=== PATIENT | female | born 1985 | race Caucasian/White ===

== ENCOUNTER 2017-02-05 17:09 | Emergency (ER) | payer MEDICAID ==
[~2017-02-05] VITALS: Ht 172.7 cm; Wt 69.0 kg
[~2017-02-05 17:09] MED LIST: ESOM20CA PO; HYDR50CA PO; LEVO75TA5 PO; OMEP-110 PO
[2017-02-05] MEDS ORDERED: LORazepam 1MG TABLET PO ONE (17:30)
[2017-02-05] MEDS ORDERED: PRAZ1CAP2 PO (17:32)
[2017-02-05] MEDS ORDERED: LORazepam 1MG TABLET ONE (17:43)
[2017-02-05 19:39] VITALS: BP 102/70
== END 2017-02-05 19:40 | disposition home or self-care (01) ==
LOC: ED 18:08
DX: F41.1 Generalized anxiety disorder (principal); R06.4 Hyperventilation; F43.11 Post-traumatic stress disorder, acute; E05.90 Thyrotoxicosis, unspecified without thyrotoxic crisis or storm; J45.909 Unspecified asthma, uncomplicated; Z88.0 Allergy status to penicillin; Z88.1 Allergy status to other antibiotic agents; Z88.8 Allergy status to other drugs, medicaments and biological substances; F17.200 Nicotine dependence, unspecified, uncomplicated
CPT/HCPCS: 93005; 99284

== ENCOUNTER 2017-04-02 13:58 | Emergency (ER) | payer MEDICAID ==
[~2017-04-02] VITALS: Ht 175.3 cm; Wt 76.5 kg
[~2017-04-02 13:58] MED LIST changes: +PRAZ1CAP2 PO
[2017-04-02 14:16] VITALS: BP 117/83
[2017-04-02 16:15] LABS: HIV 1&2 ANTIBODY SCREEN Nonreactive (Nonreactive); HIV-1 p24 ANTIGEN Nonreactive (Nonreactive)
[2017-04-03 08:30] LABS: HEPATITIS C VIRUS ANTIBODY Nonreactive (Nonreactive)
== END 2017-04-02 15:57 | disposition home or self-care (01) ==
LOC: ED 15:56
DX: Z77.21 Contact with and (suspected) exposure to potentially hazardous body fluids (principal); G43.909 Migraine, unspecified, not intractable, without status migrainosus; J45.909 Unspecified asthma, uncomplicated; E05.90 Thyrotoxicosis, unspecified without thyrotoxic crisis or storm; F43.10 Post-traumatic stress disorder, unspecified; F12.10 Cannabis abuse, uncomplicated
CPT/HCPCS: 36415; 86703; 86705; 86706; 86803; 87340; 87899; 99284; G0435

== ENCOUNTER 2017-04-12 06:40 | Emergency (ER) | payer MEDICAID ==
[~2017-04-12] VITALS: Ht 175.3 cm; Wt 78.2 kg
[2017-04-12] MEDS ORDERED: ALBUTEROL/IPRATROPIUM 2.5MG/0.5MG, 3 ML NPPB ONE (07:30)
[2017-04-12] MEDS ORDERED: ALBUTEROL/IPRATROPIUM 2.5MG/0.5MG, 3 ML ONE (07:32)
[2017-04-12 08:33] VITALS: BP 123/78
== END 2017-04-12 08:35 | disposition home or self-care (01) ==
LOC: ED 08:15
DX: J20.9 Acute bronchitis, unspecified (principal); J45.31 Mild persistent asthma with (acute) exacerbation; E05.90 Thyrotoxicosis, unspecified without thyrotoxic crisis or storm; G43.909 Migraine, unspecified, not intractable, without status migrainosus
CPT/HCPCS: 71020; 93005; 94640; 99284; J7620

== ENCOUNTER 2017-10-02 10:56 | Emergency (ER) | payer MEDICAID ==
[~2017-10-02] VITALS: Ht 175.3 cm; Wt 76.0 kg
[2017-10-02] MEDS ORDERED: SODIUM CHLORIDE 0.9% 1,000 ML IV ONE (11:29)
[2017-10-02] MEDS ORDERED: SODIUM CHLORIDE 0.9% 1,000ML IVBOLUS ONE (11:30)
[2017-10-02] MEDS ORDERED: FAMOTIDINE 20 MG/2 ML IVP ONE (11:30)
[2017-10-02] MEDS ORDERED: SODIUM CHLORIDE FLUSH 10ML SYR IVF ONE (11:30)
[2017-10-02] MEDS ORDERED: ONDANSETRON 2MG/ML, 2ML IVPush ONE (11:30)
[2017-10-02 11:48] LABS: HEMOGLOBIN 15.2 g/dL (11.7-16.4); WHITE BLOOD COUNT 5.2 x10^3/uL (3.4-10)
[2017-10-02 11:58] LABS: ASPARTATE AMINO TRANSFERASE 19 U/L (15-37); BLOOD UREA NITROGEN 10 mg/dL (7-18)
[2017-10-02] MEDS ORDERED: ONDANSETRON 2MG/ML, 2ML ONE (12:11)
[2017-10-02] MEDS ORDERED: FAMOTIDINE 20 MG/2 ML ONE (12:11)
[2017-10-02] MEDS ORDERED: OMNIPAQUE 350 MG/ML, 100ML BOTTLE ONE (14:11)
[2017-10-02 14:18] VITALS: BP 101/53
== END 2017-10-02 14:52 | disposition home or self-care (01) ==
LOC: ED 13:03
DX: R10.84 Generalized abdominal pain (principal); F43.10 Post-traumatic stress disorder, unspecified; G43.909 Migraine, unspecified, not intractable, without status migrainosus; J45.909 Unspecified asthma, uncomplicated; M79.7 Fibromyalgia
CPT/HCPCS: 36415; 74177; 76700; 80053; 81001; 83605; 83690; 84703; 85025; 87086; 96361; 96374; 96375; 99285; J2405; J7030; Q9967; S0028

== ENCOUNTER 2017-11-01 22:31 | Emergency (ER) | payer MEDICAID ==
[~2017-11-01] VITALS: Ht 175.3 cm; Wt 58.0 kg
[2017-11-01] MEDS ORDERED: KETOROLAC 30 MG/1 ML ONE (23:21)
[2017-11-01] MEDS ORDERED: HYDROmorphone 2 MG/ML, 1ML ONE (23:21)
[2017-11-01] MEDS ORDERED: HYDROmorphone 2 MG/ML, 1ML IVPush PRN (23:30)
[2017-11-01] MEDS ORDERED: KETOROLAC 30 MG/1 ML IV ONE (23:30)
[2017-11-02] MEDS ORDERED: DIAZEPAM 5 MG TABLET PO ONE (00:30)
[2017-11-02] MEDS ORDERED: DIAZEPAM 5 MG TABLET ONE (00:38)
[2017-11-02 01:44] VITALS: BP 99/66
== END 2017-11-02 00:26 | disposition home or self-care (01) ==
LOC: ED 11-02 00:20
DX: S39.012A Strain of muscle, fascia and tendon of lower back, initial encounter (principal); M62.830 Muscle spasm of back; W19.XXXA Unspecified fall, initial encounter; Y93.89 Activity, other specified; Y92.009 Unspecified place in unspecified non-institutional (private) residence as the place of occurrence of the external cause; Y99.8 Other external cause status
CPT/HCPCS: 72110; 72190; 96374; 96375; 99284; J1170; J1885

== ENCOUNTER 2019-04-01 20:04 | Emergency (ER) | payer MEDICAID ==
[~2019-04-01] VITALS: Ht 175.3 cm; Wt 82.0 kg
--- NOTE | 2019-04-01 20:08 | NUR ---
PT PLACED IN VIEW OF NURSES STATION, BELONGINGS IN 1 BAG AT CHARGE DESK.
[2019-04-01] MEDS ORDERED: HYOS0.1268 PO (20:32)
[2019-04-01] MEDS ORDERED: TOPI100T8 PO (20:32)
[2019-04-01] MEDS ORDERED: CLIN150C14 PO (20:32)
[2019-04-01] MEDS ORDERED: HYDR-3241 PO (20:32)
[2019-04-01 20:57] LABS: BASOPHILS # (AUTO) 0.08 x10^3/uL (0-0.1); BASOPHILS % (AUTO) 1 % (0-1); EOSINOPHILS # (AUTO) 0.27 x10^3/uL (0-0.4); EOSINOPHILS % (AUTO) 4 % (1-7); LYMPHOCYTES # (AUTO) 2.77 x10^3/uL (1-3.4); LYMPHOCYTES % (AUTO) 44 % (22-44); MD NO; MEAN CORPUSCULAR HEMOGLOBIN 29.8 pg (27.0-34.8); MEAN CORPUSCULAR HGB CONC 33.2 g/dL (32.4-35.8); MEAN CORPUSCULAR VOLUME 89.8 fL (80-100); MEAN PLATELET VOLUME 8.7 fL (7.4-10.4); MONOCYTES # (AUTO) 0.51 x10^3/uL (0.2-0.8); MONOCYTES % (AUTO) 8 % (2-9); NEUTROPHILS # (AUTO) 2.66 x10^3/uL (1.8-6.8); NEUTROPHILS % (AUTO) 42 % (42-75); PLATELET COUNT 261 x10^3/uL (130-400); RED CELL DISTRIBUTION WIDTH 13.2 % (9.6-15.2)
[2019-04-01] MEDS ORDERED: CLINDAMYCIN 150 MG CAPSULE PO ONE (21:00)
--- NOTE | 2019-04-01 21:02 | NUR ---
pt resting on gurathens, room secured, sitter at doorway for continous monitoring
[2019-04-01] MEDS ORDERED: hydrOXyzine 50MG TABLET ONE (21:04)
[2019-04-01 21:10] LABS: ALANINE AMINOTRANSFERASE 31 U/L (12-78); ANION GAP 8 mmol/L (5-15); CALCIUM 9.3 mg/dL (8.5-10.1); CHLORIDE 112 mmol/L (98-107); CREATININE 0.81 mg/dL (0.55-1.02); SALICYLATE LEVEL 2.6 mg/dL (2.8-20.0)
--- NOTE | 2019-04-01 21:10 | NUR ---
pt medicated per mar
[2019-04-01 21:16] LABS: ALKALINE PHOSPHATASE 126 U/L (45-117); BILIRUBIN,TOTAL 0.3 mg/dL (0.2-1.0); TOTAL PROTEIN 7.3 g/dL (6.4-8.2)
[2019-04-01 21:21] LABS: ACETAMINOPHEN < 2 mcg/mL (10-30)
--- NOTE | 2019-04-01 21:27 | NUR ---
provided pt with snack, drink, si precautions maintained. resting calmly, nad, sitter at doorway for continous monitoring
[2019-04-01 21:28] LABS: AMPHETAMINE SCREEN, URINE Negative (Negative); BARBITURATE SCREEN, URINE Negative (Negative); BENZODIAZEPINE SCREEN, URINE Negative (Negative); CANNABINOID SCREEN, URINE Positive (Negative); COCAINE SCREEN, URINE Negative (Negative); METHADONE SCREEN, URINE Negative (Negative); OPIATE SCREEN, URINE Positive (Negative)
--- NOTE | 2019-04-01 22:13 | NUR ---
PT RESTING CALMLY, DENIES NEEDS, SITTERR AT DOORWAY FOR CONTINOUS MONITORING
--- NOTE | 2019-04-01 22:21 | NUR ---
THROUGHPUT RN: PACKET FAXED TO [facility]
--- NOTE | 2019-04-01 23:06 | NUR ---
pt resting with eyes closed, nadn, equal chest rise/fall observed, sitter at doorway for continous monitoring
--- NOTE | 2019-04-02 00:56 | NUR ---
pt resting with eyes closed, repositioned self on gurney, equal chest rise/fall observed, sitter at doorway for continous monitoring
--- NOTE | 2019-04-02 01:22 | NUR ---
provided pt with hospital bed, pt now resting calmly, denies needs, nad, room secured, sitter at doorway for continous monitoring
--- NOTE | 2019-04-02 02:00 | NUR ---
pt sitting up in bed, denies needs, vss, sitter at doorway for continous monitoring
[2019-04-02] MEDS ORDERED: LORazepam 1MG TABLET PO PRN (02:30)
--- NOTE | 2019-04-02 02:39 | NUR ---
pt up to rr with steady gait. urine sample taken to lab.
--- NOTE | 2019-04-02 03:11 | NUR ---
pt resting calmly, nadn,, equal chest rise/fall observed, sitter at doorway for continous monitoring
--- NOTE | 2019-04-02 03:50 | NUR ---
pt c/o feeling anxious, pt medicated per mar
[2019-04-02] MEDS ORDERED: LORazepam 0.5MG TABLET ONE ×3 (03:51→20:13)
--- NOTE | 2019-04-02 04:20 | NUR ---
pt resting calmly, denies needs, nadn, sitter at doorway for continous monitoring
--- NOTE | 2019-04-02 05:00 | NUR ---
TELEPSYCH WAS PAGED AND BOT [id number] WAS PLACED IN ROOM.
--- NOTE | 2019-04-02 05:05 | NUR ---
pt resting with eyes closed, equal chest rise/fall observed, awaiting telepsych consult, sitter at doorway for continous monitoring
--- NOTE | 2019-04-02 06:11 | NUR ---
pt resting in bed, denies needs, respirations even and unlabored, sitter at doorway for continous monitoring
--- NOTE | 2019-04-02 06:57 | NUR ---
report given to lainey schultz
--- NOTE | 2019-04-02 07:00 | NUR ---
BEDSIDE REPORT FROM JORGE RN. PATIENT SLEEPING COMFORTABLY ON HOSPITAL BED DENIES COMPLAINTS AT THIS TIME BREAKFAST ORDERED UPDATED ON POC (HOPEFULLY ADMIT TO 2N) PATIENT A LEGAL HOLD ROOM SECURED W/ PSYCHIATRIC PRECAUTIONS SITTER AT DOORWAY FOR CONTINUOS MONITORING
--- NOTE | 2019-04-02 07:42 | NUR ---
REPORT PROVIDED TO TELEPSYCH MD IN PREPARATION FOR EVALUATION
--- NOTE | 2019-04-02 07:56 | NUR ---
AFTER LAB CALLED TO CLARIFY- [facility]CG URINE COLLECTED URINE SAMPLE IN LAB W/ SUFFICIENT AMOUNT
--- NOTE | 2019-04-02 08:16 | NUR ---
PATIENT BEING EVALUATED BY TELEPSYCH MD MEDICATED PER EMAR. RATES PAIN AT 6/10 RELATED TO CHRONIC LEFT KNEE INFECTION
[2019-04-02 08:17] LABS: HCG UR SG 1.017 (1.003-1.030)
[2019-04-02] MEDS: CLINDAMYCIN 150 MG CAPSULE PO SCH ×4 (08:21→20:48)
[2019-04-02] MEDS: TOPIRAMATE 100 MG TABLET PO SCH ×2 (08:21→20:48)
[2019-04-02] MEDS: LEVOTHYROXINE 75 MCG TABLET PO SCH (08:21)
[2019-04-02] MEDS ORDERED: BACITRACIN ZINC OINT 500U/GM, 0.9 GM ONE (08:24)
[2019-04-02] MEDS ORDERED: hydrOXyzine 50MG TABLET ONE (08:38)
[2019-04-02] MEDS: HYDROXYZINE PAMOATE 25MG CAP PO SCH ×2 (08:42→20:27)
[2019-04-02] MEDS: HYOSCYAMINE 0.125 MG TABLET PO SCH ×3 (08:43→20:28)
--- NOTE | 2019-04-02 08:50 | NUR ---
AFTER PSYCHIATRIST EVAL PATIENT BRIEFLY TEARFUL-REPORT "I JUST NEED TO BE ABLE TO GET BACK TO [place], [place]. I'M JUST OVERWHELMED LATELY AND I NEED HELP FINDING A NEW PLACE TO LIVE." NET SOFTWARE ARCHITECT ALLOWED PATIENT TO VENT AND REINFORCED WE ARE HERE FOR HER AND WILL DO OUR BEST TO EXPEDITE HER DISPOSITION ORDERED BY PROVIDERS ATE ENTIRE BREAKFAST UPDATED ON POC (HOPEFULLY ADMIT TO 2N) PATIENT A LEGAL HOLD ROOM SECURED W/ PSYCHIATRIC PRECAUTIONS SITTER AT DOORWAY FOR CONTINUOS MONITORING
[2019-04-02] MEDS ORDERED: HYDROXYZINE PAMOATE 50MG CAP PO SCH (09:00)
--- NOTE | 2019-04-02 09:21 | NUR ---
WITH RE-ASSESSMENT PATIENT NOW CALM. REPORT " I FEEL A LITTLE BETTER NOW. I TRUST YOU GUYS WONT KICK ME OUT TO THE STREETS WITHOUT HELPING ME FIRST." PAIN IMPROVED TO 2/10 AFTER MEDICATION ADMINISTRATION UPDATED ON POC ROOM REMAINS SECURED WITH PSYCHIATRIC PRECAUTIONS SITTER WITHIN EYELINE FOR CONTINUED OBSERVATION
[2019-04-02] MEDS ORDERED: LORazepam 1MG TABLET ONE (10:12)
[2019-04-02] MEDS: LORazepam 1MG TABLET PO PRN ×2 (10:34→20:28)
--- NOTE | 2019-04-02 10:37 | NUR ---
MEICATED PER EMAR FOR ANXIETY RATED AT 610 RELATED DISPO [employer] MACHINE TECHNICIAN AGAIN CLARIFIED WE ARE WORKING HARD TO TRANSFER HER TO A SAFE PLACE
--- NOTE | 2019-04-02 10:43 | NUR ---
ROOM REMAINS SECURED WITH PSYCHIATRIC PRECAUTIONS SITTER WITHIN EYELINE FOR CONTINUED OBSERVATION
[2019-04-02] MEDS ORDERED: POTASSIUM CHLORIDE 20 MEQ TAB.ER.PRT PO ONE (11:30)
[2019-04-02] MEDS ORDERED: POTASSIUM CHLORIDE 20 MEQ TAB.ER.PRT ONE (11:36)
--- NOTE | 2019-04-02 12:49 | NUR ---
PATIENT UP WALKING RAE WITH SITTER NO COMPLAINTS EATING LUNCH ROOM REMAINS SECURED WITH PSYCH PRECAUTIONS SITTER WITHING EYESIGHT REPORT TO DERRELL PETERSON
--- NOTE | 2019-04-02 13:27 | NUR ---
BREAK RN - PT RESTING ON L[place]EN. NADN. RESP EVEN AND UNLABORED. SITTER IN PLACE WITH EYES ON PT. ROOM SECURED.
--- NOTE | 2019-04-02 14:56 | NUR ---
WITH ADMINISTRATION OF CLINDAMYCIN PATIENT REPORTS SHE IS SUPPOSED TO BE ON IT QID. REVIEWED EXTERNAL MED HISTORY 150MG QID X 14 DAYS. PHARMACY AND PROVIDER MADE AWARE-ORDER CHANGED TO QID PATIENT UPDATED NO CONCERNS AT THIS TIME ROOM REMAINS SECURED WITH PSYCH PRECAUTIONS SITTER WITHING EYESIGHT
--- NOTE | 2019-04-02 15:40 | NUR ---
NO CONCERNS AT THIS TIME, RESTING COMFORTABLY ON HOSPITAL BED ROOM REMAINS SECURED WITH PSYCH PRECAUTIONS SITTER WITHING EYESIGHT
--- NOTE | 2019-04-02 17:13 | NUR ---
PATIENT ALLOWED TO SPEAK WITH EX- ON THE DESK PHONE WHILE CRUSHER SUPERVISED. CONVERSATION SEEMED TO GO WELL. PATIENT PROVIDED WITH ALTERNATIVE DINNER (MAC & CHEESE) IN ADDITION TO MAIN TRAY PER REQUEST MEDICATED WITH AFTERNOON DOSE OF CLINDAMYCIN-WILL STILL NEED 9PM DOSE TO MAKE IT QID. WILL PASS ON TO NEXT SHIFT DENIES COMPLAINTS-PROVIDED WITH WASH CLOTHS/BED SHEETS CHANGED FOR COMFORT ROOM REMAINS SECURED WITH PSYCHIATRIC PRECAUTIONS 1:1 SITTER WITHING EYELINE
--- NOTE | 2019-04-02 18:36 | NUR ---
ADDITIONAL DINNER ORDERED PER REQUEST DENIES COMPLAINTS ROOM REMAINS SECURED W/ PSYCHIATRIC PRECAUTIONS 1:1 SITTER W/IN LINE OF SIGHT
--- NOTE | 2019-04-02 19:07 | NUR ---
REPORT TO CORDELL PETERSON
--- NOTE | 2019-04-02 20:30 | NUR ---
PT RESTING ON BED. VSS. MEDICATED PER EMAR. SITTER AT BEDSIDE.
--- NOTE | 2019-04-02 21:33 | NUR ---
PT SLEEPING IN BED. SITTER AT BEDSIDE.
--- NOTE | 2019-04-02 22:50 | NUR ---
PT LAYING IN BED. SITTER AT BEDSIDE.
--- NOTE | 2019-04-02 23:56 | NUR ---
PT SLEEPING WITH SITTER AT BEDSIDE.
--- NOTE | 2019-04-03 00:43 | NUR ---
PT REMAINS SLEEPING WITH SITTER AT DOORWAY.
--- NOTE | 2019-04-03 02:28 | NUR ---
PT REMAINS SLEEPING WITH SITTER AT BEDSIDE.
--- NOTE | 2019-04-03 03:30 | NUR ---
PT REMAINS SLEEPING. SITTER AT BEDSIDE.
--- NOTE | 2019-04-03 04:25 | NUR ---
PT REMAINS SLEEPING. ABLE TO REPOSITION SELF. VSS. SITTER AT BEDSIDE.
--- NOTE | 2019-04-03 05:53 | NUR ---
PT AMBULATED TO BATHROOM. VSS. SITTER AT BEDSIDE.
[2019-04-03 05:54] LABS: BASOPHILS # (AUTO) 0.09 x10^3/uL (0-0.1); BASOPHILS % (AUTO) 2 % (0-1); EOSINOPHILS # (AUTO) 0.33 x10^3/uL (0-0.4); EOSINOPHILS % (AUTO) 6 % (1-7); LYMPHOCYTES # (AUTO) 2.74 x10^3/uL (1-3.4); LYMPHOCYTES % (AUTO) 52 % (22-44); MD NO; MEAN CORPUSCULAR VOLUME 90.6 fL (80-100); MEAN PLATELET VOLUME 8.6 fL (7.4-10.4); MONOCYTES # (AUTO) 0.58 x10^3/uL (0.2-0.8); MONOCYTES % (AUTO) 11 % (2-9); NEUTROPHILS # (AUTO) 1.54 x10^3/uL (1.8-6.8); NEUTROPHILS % (AUTO) 29 % (42-75); PLATELET COUNT 251 x10^3/uL (130-400); RED BLOOD COUNT 4.97 x10^6/uL (3.82-5.3); RED CELL DISTRIBUTION WIDTH 13.4 % (9.6-15.2)
[2019-04-03] MEDS: CLINDAMYCIN 150 MG CAPSULE PO SCH ×4 (06:01→21:37)
[2019-04-03] MEDS: LEVOTHYROXINE 75 MCG TABLET PO SCH (06:01)
[2019-04-03 06:06] LABS: ANION GAP 8 mmol/L (5-15); CALCIUM 9.8 mg/dL (8.5-10.1); CHLORIDE 110 mmol/L (98-107)
[2019-04-03 06:07] LABS: CREATININE 0.99 mg/dL (0.55-1.02)
--- NOTE | 2019-04-03 06:57 | NUR ---
REPORT GIVEN TO MARK PETERSON.
--- NOTE | 2019-04-03 06:58 | NUR ---
report received from Rosie. pt calmly resting on hospital bed, NAD with equal chest rise/fall, no needs at this time, pt remains in safe environment, sitter in view.
--- NOTE | 2019-04-03 08:00 | NUR ---
pt continues to calmly rest on hospital bed, watching TV, responds approp to staff, NAD, comfort measures provided, pt remains in safe environment, sitter in view. Addendum: 04/03/19 at 0803 by VICKI pt continues to calmly rest on hospital bed, NAD with equal chest rise/fall, no needs at this time, pt remains in safe environment, sitter in view.
--- NOTE | 2019-04-03 08:46 | NUR ---
breakfast tray given
--- NOTE | 2019-04-03 09:00 | NUR ---
pt calmly resting on hospital bed, watching TV, ate 100% of breakfast & given addt'l cereal per request, responds approp to staff, NAD, comfort measures provided, pt remains in safe environment, sitter in view.
[2019-04-03] MEDS ORDERED: hydrOXyzine 50MG TABLET ONE (09:02)
[2019-04-03] MEDS: HYDROXYZINE PAMOATE 25MG CAP PO SCH ×2 (09:36→21:37)
[2019-04-03] MEDS: HYOSCYAMINE 0.125 MG TABLET PO SCH ×3 (09:37→21:37)
[2019-04-03] MEDS: TOPIRAMATE 100 MG TABLET PO SCH ×2 (09:37→21:37)
--- NOTE | 2019-04-03 10:03 | NUR ---
pt continues to calmly rest on hospital bed, NAD with equal chest rise/fall, no needs at this time, pt remains in safe environment, sitter in view.
--- NOTE | 2019-04-03 10:51 | NUR ---
report given to Naida Storm
--- NOTE | 2019-04-03 10:52 | NUR ---
RECEIVED REPORT FROM KRISS PETERSON, ASSUMING CARE OF PT AT THIS TIME. PT RESTING IN ROOM WATCHING TV. CALM AND COOPERATIVE AT THIS TIME. MEDICATED PER JAN. FLUIDS AT BEDSIDE. SITTER IN RAE FOR CONTINUOUS MONITORING.
--- NOTE | 2019-04-03 11:39 | NUR ---
TASK RN: VIATALS COMPLETED, PT RESTING IN BED NADN AND EQUAL RESPIRATIONS WITH GOOD CAP REFILL NOTED.
[2019-04-03] MEDS ORDERED: NALOXONE 1 MG/ML, 2ML ONE (11:42)
[2019-04-03] MEDS ORDERED: DIPH,PERTUSS(ACELL),TET VAC/PF 0.5 ML IM-VACC ONE (11:49)
--- NOTE | 2019-04-03 12:56 | NUR ---
ISSUE WITH DIET TRAY BEING DELIVERED WITHOUT SOFT FOOD, DIETARY CONTACTED, NEW TRAY TO BE DELIEVERED. PT UPDATED, COOPERATIVE AND UNDERSTANDING. SITTER IN RAE FOR CONTINUOUS MONITORING
--- NOTE | 2019-04-03 13:09 | NUR ---
PT BECOMING INCREASINGLY UPSET AND TEARFUL OVER FOOD DELIVERED (MASHED POTATOES AND MAC CHEESE) PT UNWILLING TO GIVE THIS RN OTHER FOOD SUGGESTIONS AT THIS TIME. SECOND CALL PLACED TO DIETARY REQUESTING STEAMED VEGGIES, FRUIT AND PROTIEN DRINK
--- NOTE | 2019-04-03 14:52 | NUR ---
PT RESTING IN ROOM, CALM AND COOPERATIVE AT THIS TIME. FLUIDS AT BEDSIDE. NADN. ALL NEEDS MET AT THIS TIME. SITTER IN RAE FOR CONTINUOUS MONITORING.
[2019-04-03 15:57] VITALS: BP 106/70
--- NOTE | 2019-04-03 16:51 | NUR ---
PHARM CONTACTED ABOUT AFTERNOON MEDS
--- NOTE | 2019-04-03 16:55 | NUR ---
pt offered Ensure & soft food tray, pt refused while cussing & yelling at staff stating "Get the fuck away from me! I'm not going to eat anything you guys have! I'm on a starving strike until you guys let me out of here!", pt crouched on the floor in a blanket, Ensure & food tray placed in fridge with pt label, jose RN notified.
--- NOTE | 2019-04-03 17:02 | NUR ---
PT ASKING WHEN SHE CAN GO HOME, EXPLAINED TO HER AGAIN THAT SHE IS ON A LEGAL HOLD AND NEEDS TO WAIT UNTIL COURT OR FOR THE THERAPIST TO RELEASE HER FROM HOLD. PT CRYING, SITTING ON FLOOR IN ROOM. OFFERED PT ATIVAN TO CALM DOWN, DECLINING AT THIS TIME.
--- NOTE | 2019-04-03 18:05 | NUR ---
SW TO BEDSIDE AT THIS TIME TO TALK WITH PT ABOUT POC. WILL ATTEMPT AGAIN TO GIVE PT MEDS AFTER SHE FINISHES ON PHONE.
--- NOTE | 2019-04-03 18:10 | NUR ---
PT EATING DINNER TRAY IN ROOM. STATING "I KNOW IF I WANT TO GET OUT OF HERE I HAVE TO EAT." SITTER IN RAE FOR CONTINUOUS MONITORING
--- NOTE | 2019-04-03 18:37 | NUR ---
FAMILY REPORTING APT MADE FOR PT FOR [employer] ON WEDNESDAY THE @11AM FOR PSYCH CONSULT. SW TO BE UPDATED. AFTER VISITOR WAS HERE FOR A WHILE PT BECAME VERY EMOTIONAL, CRYING AND RAISING VOICE, VISITOR WAS ASKED TO LEAVE. SITTER IN RAE FOR CONTINUOUS MONITORING. WILL CONTINUE TO MONITOR
--- NOTE | 2019-04-03 19:45 | NUR ---
PT RESTING IN BED, WATCHING TV CALMLY. FLUIDS AT BEDSIDE. ALL NEEDS MET AT THIS TIME. SITTER IN RAE FOR CONTINUOUS MONITORING.
--- NOTE | 2019-04-03 21:09 | NUR ---
SCHEDULED MEDS REQUESTED FROM PHARM
--- NOTE | 2019-04-03 22:44 | NUR ---
REPORT GIVEN TO ED RN, PT READY TO BE TRANSFERED TO 3E
== END 2019-04-03 22:51 ==
LOC: ED 21:08 → EDIP 04-02 01:49 → UNDOADMIN 04-02 01:49 → ED 04-03 22:51
DX: F33.1 Major depressive disorder, recurrent, moderate (principal)
CPT/HCPCS: 36415; 80048; 80053; 80307; 81025; 84443; 84703; 85025; 99285; Q0177

== ENCOUNTER 2019-04-03 22:25 | Inpatient (IN) | payer MEDICAID ==
[~2019-04-03] VITALS: Ht 175.3 cm; Wt 78.0 kg
[~2019-04-03 22:25] MED LIST changes: +CLIN150C14 PO; +HYDR-3241 PO; +HYOS0.1268 PO; +TOPI100T8 PO
[2019-04-03 22:55] VITALS: BP_SYST 109; BP_SYST 112; BP_SYST 115; BP_DIAS 74; BP_DIAS 76
[2019-04-03] MEDS ORDERED: ACETAMINOPHEN 325 MG TABLET PO PRN (23:00)
[2019-04-04 01:25] VITALS: BP 115/76
[2019-04-04 07:20] LABS: BASOPHILS # (AUTO) 0.07 x10^3/uL (0-0.1); BASOPHILS % (AUTO) 1 % (0-1); EOSINOPHILS # (AUTO) 0.41 x10^3/uL (0-0.4); EOSINOPHILS % (AUTO) 7 % (1-7); LYMPHOCYTES # (AUTO) 2.71 x10^3/uL (1-3.4); LYMPHOCYTES % (AUTO) 48 % (22-44); MD NO; MEAN CORPUSCULAR HEMOGLOBIN 28.1 pg (27.0-34.8); MEAN CORPUSCULAR HGB CONC 31.2 g/dL (32.4-35.8); MEAN CORPUSCULAR VOLUME 90.1 fL (80-100); MEAN PLATELET VOLUME 8.9 fL (7.4-10.4); MONOCYTES # (AUTO) 0.58 x10^3/uL (0.2-0.8); MONOCYTES % (AUTO) 10 % (2-9); NEUTROPHILS # (AUTO) 1.83 x10^3/uL (1.8-6.8); NEUTROPHILS % (AUTO) 33 % (42-75); PLATELET COUNT 254 x10^3/uL (130-400); RED BLOOD COUNT 5.14 x10^6/uL (3.82-5.3); RED CELL DISTRIBUTION WIDTH 13.6 % (9.6-15.2)
[2019-04-04 07:32] VITALS: BP 97/66
[2019-04-04 07:33] LABS: ALBUMIN 4.2 g/dL (3.4-5.0); ANION GAP 8 mmol/L (5-15); CHLORIDE 108 mmol/L (98-107)
[2019-04-04 07:58] LABS: ALANINE AMINOTRANSFERASE 24 U/L (12-78); ALKALINE PHOSPHATASE 123 U/L (45-117); BILIRUBIN,TOTAL 0.4 mg/dL (0.2-1.0); CHOLESTEROL, TOTAL 313 mg/dL (140-239); CREATININE 0.97 mg/dL (0.55-1.02); HDL CHOL % 20 % (28-40); HDL CHOLESTEROL (DIRECT) 62 mg/dL (40-60); LDL CHOLESTEROL,CALCULATED 231 mg/dL (54-169); LDL/HDL RATIO 3.7 (0.5-3.0); TOTAL PROTEIN 7.5 g/dL (6.4-8.2); TRIGLYCERIDES 100 mg/dL (50-200); VLDL CHOLESTEROL 20 mg/dL (0-25)
[2019-04-04] MEDS: SENNA/DOCUSATE TABLET PO SCH (09:00)
[2019-04-04 10:24] LABS: MICROSCOPIC AUTO
[2019-04-04 10:32] LABS: CULTURE INDICATED? YES
[2019-04-04] MEDS ORDERED: CLINDAMYCIN 150 MG CAPSULE PO SCH (11:00)
[2019-04-04] MEDS ORDERED: HYDROXYZINE PAMOATE 50MG CAP PO SCH (11:00)
[2019-04-04] MEDS: SERTRALINE 50MG TABLET PO SCH ×2 (11:00→11:33)
[2019-04-04] MEDS: LEVOTHYROXINE 75 MCG TABLET PO SCH (11:33)
[2019-04-04] MEDS: CLINDAMYCIN 150 MG CAPSULE PO SCH ×3 (11:33→20:05)
[2019-04-04] MEDS: HYOSCYAMINE 0.125 MG TABLET PO SCH ×3 (11:33→20:05)
[2019-04-04] MEDS: TOPIRAMATE 100 MG TABLET PO SCH ×2 (11:33→20:06)
[2019-04-04 19:35] VITALS: BP 106/70
[2019-04-04] MEDS: ATORVASTATIN 40 MG TABLET PO SCH (20:05)
[2019-04-04] MEDS: HYDROXYZINE PAMOATE 25MG CAP PO SCH (20:06)
[2019-04-05] MEDS: CLINDAMYCIN 150 MG CAPSULE PO SCH ×4 (05:32→20:35)
[2019-04-05 07:12] LABS: CHOL/HDL RATIO 5.7; LDL/HDL RATIO 4.3 (0.5-3.0)
[2019-04-05 07:15] VITALS: BP 99/66
[2019-04-05] MEDS: HYOSCYAMINE 0.125 MG TABLET PO SCH ×3 (08:58→22:01)
[2019-04-05] MEDS: LEVOTHYROXINE 75 MCG TABLET PO SCH (08:59)
[2019-04-05] MEDS: SENNA/DOCUSATE TABLET PO SCH (08:59)
[2019-04-05] MEDS: SERTRALINE 50MG TABLET PO SCH ×2 (08:59→09:00)
[2019-04-05] MEDS: TOPIRAMATE 100 MG TABLET PO SCH ×2 (08:59→20:35)
[2019-04-05] MEDS: HYDROXYZINE PAMOATE 25MG CAP PO SCH ×2 (08:59→20:35)
[2019-04-05] MEDS ORDERED: CLIN150C14 PO (17:25)
[2019-04-05] MEDS ORDERED: LEVO75TA PO (17:25)
[2019-04-05] MEDS ORDERED: ATOR40TA78 PO (17:25)
[2019-04-05] MEDS ORDERED: SERT50TA28 PO (17:25)
[2019-04-05] MEDS ORDERED: TOPI100T24 PO (17:25)
[2019-04-05] MEDS ORDERED: HYDR25CA94 PO (17:25)
[2019-04-05 19:43] VITALS: BP 110/75
[2019-04-05] MEDS: ATORVASTATIN 40 MG TABLET PO SCH (20:35)
[2019-04-05 23:55] LABS: MICROSCOPIC AUTO
[2019-04-06 00:01] LABS: CULTURE INDICATED? YES
[2019-04-06] MEDS: CLINDAMYCIN 150 MG CAPSULE PO SCH ×2 (05:14→10:01)
[2019-04-06 07:18] VITALS: BP 97/67
[2019-04-06] MEDS: TOPIRAMATE 100 MG TABLET PO SCH (08:46)
[2019-04-06] MEDS: SERTRALINE 50MG TABLET PO SCH (08:46)
[2019-04-06] MEDS: LEVOTHYROXINE 75 MCG TABLET PO SCH (08:46)
[2019-04-06] MEDS: HYOSCYAMINE 0.125 MG TABLET PO SCH (08:46)
[2019-04-06] MEDS: SENNA/DOCUSATE TABLET PO SCH (08:46)
[2019-04-06] MEDS ORDERED: HYDROXYZINE PAMOATE 50MG CAP PO SCH (09:00)
== END 2019-04-06 15:05 | disposition home or self-care (01) | DRG 885 ==
LOC: 3E 23:12
PROVIDERS: ADMIT Psychiatry & Neurology Psychosomatic Medicine; ATTEND Psychiatry & Neurology Psychosomatic Medicine
DX: F31.5 Bipolar disorder, current episode depressed, severe, with psychotic features (principal); R45.851 Suicidal ideations; E03.9 Hypothyroidism, unspecified; E78.00 Pure hypercholesterolemia, unspecified; F12.90 Cannabis use, unspecified, uncomplicated; E11.9 Type 2 diabetes mellitus without complications; G89.29 Other chronic pain; F31.9 Bipolar disorder, unspecified; F43.10 Post-traumatic stress disorder, unspecified; F60.3 Borderline personality disorder; M79.7 Fibromyalgia; Z87.11 Personal history of peptic ulcer disease; Z88.0 Allergy status to penicillin; Z88.8 Allergy status to other drugs, medicaments and biological substances; Z71.6 Tobacco abuse counseling; Z87.891 Personal history of nicotine dependence
CPT/HCPCS: 36415; 71045; 80053; 80061; 81001; 82140; 82607; 84439; 84443; 85025; 86592; 87086; 93005; 92523-GN

== ENCOUNTER 2020-03-31 18:03 | Emergency (ER) | payer MEDICAID ==
[~2020-03-31] VITALS: Ht 175.3 cm; Wt 93.0 kg
[~2020-03-31 18:03] MED LIST changes: +ATOR40TA78 PO; +HYDR25CA94 PO; +LEVO75TA PO; +SERT50TA28 PO; +TOPI100T24 PO
[2020-03-31 18:13] VITALS: BP 125/79
--- NOTE | 2020-03-31 18:18 | NUR ---
PT AMBULATED TO THE ROOM FROM TRIAGE W/ A STEADY GAIT.
--- NOTE | 2020-03-31 18:51 | NUR ---
Report received from KRISTEN Hatch. This RN to assume care. Medicated patient per mar. Preparing to discharge.
== END 2020-03-31 18:57 | disposition home or self-care (01) ==
LOC: ED 18:48
DX: L03.116 Cellulitis of left lower limb (principal); J45.909 Unspecified asthma, uncomplicated; E05.90 Thyrotoxicosis, unspecified without thyrotoxic crisis or storm; Z90.710 Acquired absence of both cervix and uterus
CPT/HCPCS: 99283; J7512

== ENCOUNTER 2020-12-21 10:36 | Emergency (ER) | payer MEDICAID ==
[~2020-12-21] VITALS: Ht 175.3 cm; Wt 91.1 kg
[~2020-12-21 10:36] MED LIST changes: -CLIN150C14 PO; +CLIN150C15 PO
--- NOTE | 2020-12-21 10:58 | NUR ---
Pt ot ER 4, PA and myself at bedise. c/o neck, bakc and hip pain after fall. On gurney, provided with warm blanket. given call light/ remote. Plan of care discussed.
[2020-12-21] MEDS ORDERED: HYDROcodone/APAP 5/325 TABLET PO ONE (11:00)
--- NOTE | 2020-12-21 11:15 | NUR ---
Pt medicated, pt away to [facility] via [facility].
[2020-12-21] MEDS ORDERED: HYDROcodone/APAP 5/325 TABLET ONE (11:29)
--- NOTE | 2020-12-21 12:11 | NUR ---
Results back, chart up for ERP.
--- NOTE | 2020-12-21 12:50 | NUR ---
pt discharged home. ambulates with even steady gait in no acute distress. Pt states she has a ride home.
[2020-12-21 12:52] VITALS: BP 133/82
== END 2020-12-21 12:52 | disposition home or self-care (01) ==
LOC: ED 11:22
DX: S16.1XXA Strain of muscle, fascia and tendon at neck level, initial encounter (principal); S00.93XA Contusion of unspecified part of head, initial encounter; S70.01XA Contusion of right hip, initial encounter; R55 Syncope and collapse; G43.909 Migraine, unspecified, not intractable, without status migrainosus; M79.7 Fibromyalgia; Z87.891 Personal history of nicotine dependence; W00.2XXA Other fall from one level to another due to ice and snow, initial encounter; Y93.01 Activity, walking, marching and hiking; Y92.488 Other paved roadways as the place of occurrence of the external cause; Y99.8 Other external cause status
CPT/HCPCS: 70450; 72125; 99285